=== PATIENT | male | born 1960 ===

== ENCOUNTER 2017-07-01 07:27 | Emergency (ER) | payer BC ==
[2017-07-01 07:27] VITALS: BMI 23.3
[2017-07-01 07:59] VITALS: RESP 17; TEMP 97.9
--- NOTE | 2017-07-01 08:57 | ED PDOC ---
Arrival/HPI - General Chief Complaint: Upper Extremity Problem/Injury Time Seen by Provider: 07/01/17 07:30 Historian: Patient - History of Present Illness Narrative History of Present Illness (Text): 07/01/17 09:00 56 year old male with a hx of Diabetes and hypertension, complaining of pain to the left side of chest/axillary area for the past 2-3weeks. Patient notes that coughing or moving arm around makes it worse, but not particularly coughing. Patient did not take his BP meds today. Denies nausea, vomiting, diarrhea, shortness of breath, leg swelling, diaphoresis, rash, or abdominal pain. Time/Duration: > week (2 weeks) Symptom Onset: Sudden Severity Level: Mild Past Medical History - Provider Review Nursing Documentation Reviewed: Yes - Infectious Disease Hx of Infectious Diseases: None - Cardiac Hx Hypertension: Yes - Endocrine/Metabolic Hx Diabetes Mellitus Type 2: Yes - Musculoskeletal/Rheumatological Hx Back Pain: Yes - Psychiatric Hx Substance Use: No - Anesthesia Hx Anesthesia: No Family/Social History - Physician Review Nursing Documentation Reviewed: Yes Family/Social History: Unknown Family HX Smoking Status: Light Smoker < 10 Cigarettes Daily Hx Alcohol Use: Yes Hx Substance Use: No Allergies/Home Meds Allergies/Adverse Reactions: Allergies No Known Allergies Allergy (Verified 07/10/16 12:05) Review of Systems - Physician Review All systems were reviewed & negative as marked: Yes - Review of Systems Respiratory: absent: SOB Gastrointestinal: absent: Abdominal Pain Physical Exam - Physical Exam Narrative Physical Exam (Text): Constitutional: No acute distress. Head: Normocephalic. Atraumatic. Eyes: PERRL. ENT: Moist mucous membranes. Neck: Supple. Cardiovascular: Regular rate. Radial pulse 2+ bilaterally. Chest: No tenderness. Respiratory: Clear to auscultation bilaterally. GI: Soft. Nontender. Nondistended. Back: No CVA tenderness. Musculoskeletal: No tenderness or swelling of extremities. Skin: No rash. Neurologic: Alert, no focal deficit. Vital Signs Temp Pulse Resp BP Pulse Ox 07/01/17 11:55 98 H 17 156/78 H 99 07/01/17 11:00 100 H 17 155/80 H 99 07/01/17 09:27 104 H 17 164/92 H 100 07/01/17 07:57 97.9 F 106 H 17 172/99 H 100 Medical Decision Making ED Course and Treatment: 07/01/17 08:58 Impression: 56 year old male c/o pain to the left side of chestaxillary area for the past 2-3 weeks. Plans: * EKG * Blood labs * Chest X-ray * Aspirin * Urinalysis FINDINGS: LINES AND TUBES: None. LUNG AND PLEURA: The lungs are well inflated and clear. HEART AND MEDIASTINUM: The heart is not enlarged. The hilar and mediastinal contours are within normal limits. SKELETAL STRUCTURES: The bony structures are within normal limits for the patient's age. VISUALIZED UPPER ABDOMEN: Normal. OTHER FINDINGS: None. IMPRESSION: No active pulmonary disease. Patient with no change in symptoms during evaluation. Vital signs stable, still with no shortness of breath and pulse oximetry at 100%. Enzymes negative in this patient with pain for 2-3 weeks. Discussed case with Dr. Quezada who agrees with work up and states patient can see him in office in 2 days on Wednesday. Discharged home, instructed to return to ED for any shortness of breath. - Lab Interpretations Lab Results: 07/01/17 08:50 07/01/17 08:50 Lab Results 07/01/17 10:37: Urine Color Yellow, Urine Appearance Clear, Urine pH 7.0, Ur Specific [place] 1.015, Urine Protein Negative, Urine Glucose (UA) 500 H, Urine Ketones Negative, Urine Blood Negative, Urine Nitrate Negative, Urine Bilirubin Negative, Urine Urobilinogen 0.2, Ur Leukocyte Esterase Negative 07/01/17 08:50: Sodium 139, Potassium 4.3, Chloride 103, Carbon Dioxide 31, Anion Gap 10, BUN 17, Creatinine 0.9, Est GFR ( Amer) > 60, Est GFR (Non- Af Amer) > 60, Random Glucose 237 H, Calcium 9.6, Total Bilirubin 0.7, AST 21, ALT 20, Alkaline Phosphatase 65, Total Creatine Kinase 190, Troponin I < 0.01, Total Protein 6.9, Albumin 4.0, Globulin 2.9, Albumin/Globulin Ratio 1.3 07/01/17 08:50: WBC 6.7 D, RBC 4.17, Hgb 12.3 L, Hct 36.9 L, MCV 88.5, MCH 29.5 , MCHC 33.3, RDW 13.0, Plt Count 257, MPV 10.2, Gran % 61.2, Lymph % (Auto) 28.8 , [place] % (Auto) 8.2 H, Eos % (Auto) 1.5, Baso % (Auto) 0.3, Gran # 4.09, Lymph # 1.9, [place] # 0.6, Eos # 0.1, Baso # 0.02 - RAD Interpretation Radiology Orders: 07/01/17 08:04 CHEST TWO VIEWS (PA/LAT) [RAD] Stat - EKG Interpretation EKG Interpretation (Text): 07/01/17 08:57 NSR 70, NO ST/T wave changes Interpreted by ED Physician: Yes Type: 12 lead EKG - Medication Orders Current Medication Orders: Discontinued Medications Aspirin (Aspirin) 325 mg PO STAT STA Stop: 07/01/17 08:05 Last Admin: 07/01/17 09:08 Dose: 325 mg Famotidine (Pepcid) 20 mg PO STAT STA Stop: 07/01/17 11:32 Last Admin: 07/01/17 12:00 Dose: 20 mg Ketorolac Tromethamine (Toradol) 60 mg IM STAT STA Stop: 07/01/17 11:16 Last Admin: 07/01/17 11:24 Dose: 60 mg MAR Pain Assessment Document 07/01/17 11:24 SF (Rec: 07/01/17 11:24 SF [id number]) Pain Reassessment Is this a pain reassessment? Yes Sleep Is patient sleeping during reassessment? No Presence of Pain Presence of Pain Yes Pain Scale Used Pain Scale Used Numeric Location Pain Location Body Site Chest Description Description Constant Pain Behavior Rubbing Site IM Administration Charges Document 07/01/17 11:24 SF (Rec: 07/01/17 11:24 SF [id number]) Injection Site MAR Injection Site Left Deltoid Charges for Administration # of IM Administrations 1 - Scribe Statement The provider has reviewed the documentation as recorded by the Scribe Lucius arteaga All medical record entries made by the Scribe were at my direction and personally dictated by me. I have reviewed the chart and agree that the record accurately reflects my personal performance of the history, physical exam, medical decision making, and the department course for this patient. I have also personally directed, reviewed, and agree with the discharge instructions and disposition. Disposition/Present on Arrival - Present on Arrival Any Indicators Present on Arrival: No History of DVT/PE: No History of Uncontrolled Diabetes: No Urinary Catheter: No History of Decub. Ulcer: No History Surgical Site Infection Following: None - Disposition Have Diagnosis and Disposition been Completed?: Yes Diagnosis: Left axillary pain Disposition: HOME/ ROUTINE Disposition Time: 11:33 Patient Plan: Discharge Condition: STABLE Discharge Instructions (ExitCare): Chest Pain (ED) Prescriptions: Famotidine [Pepcid] 1 tab PO BID #14 tab Ibuprofen [Motrin] 600 mg PO Q6 #25 tab Referrals: Neftali Quezada [Primary Care Provider] - Follow up with primary Forms: [facility] ([place] Citizen)
[2017-07-01 09:03] LABS: BASO # 0.02 K/mm3 (0.0-2.0); BASO % 0.3 % (0.0-3.0); EOS # 0.1 (0.0-0.7); EOS % 1.5 % (1.5-5.0); GRAN # 4.09 (1.4-6.5); GRAN % 61.2 % (50.0-68.0); HEMATOCRIT 36.9 % (42.0-52.0); LYMPH # 1.9 (1.2-3.4); LYMPH % 28.8 % (22.0-35.0); MEAN CELL VOLUME 88.5 fl (80.0-105.0); MEAN CORPUSCULAR HEMOGLOBIN 29.5 pg (25.0-35.0); MEAN CORPUSCULAR HGB CONC 33.3 g/dl (31.0-37.0); MEAN PLATELET VOLUME 10.2 fl (7.0-11.0); MONO # 0.6 (0.1-0.6); MONO % 8.2 % (1.0-6.0); WHITE BLOOD COUNT 6.7 10^3/ul (4.5-11.0)
[2017-07-01 09:14] LABS: ALB/GLOB RATIO 1.3 (1.1-1.8); ALKALINE PHOSPHATASE 65 U/L (38-126); ALT/SGPT 20 U/L (7-56); AST/SGOT 21 U/L (17-59); BILIRUBIN,TOTAL 0.7 mg/dL (0.2-1.3); BLOOD UREA NITROGEN 17 mg/dL (7-21); CALCIUM 9.6 mg/dL (8.4-10.5); CARBON DIOXIDE 31 mmol/L (21-33); CHLORIDE 103 mmol/L (98-107); GFR AFRICAN-AMERICAN > 60; GLUCOSE,RANDOM 237 mg/dL (70-110); POTASSIUM 4.3 mmol/L (3.6-5.0); SODIUM 139 mmol/L (132-148); TOTAL PROTEIN 6.9 g/dL (5.8-8.3)
[2017-07-01 09:26] LABS: TROPONIN I < 0.01 ng/mL
[2017-07-01 10:51] LABS: URINE BILIRUBIN NEGATIVE (NEGATIVE); URINE BLOOD NEGATIVE (NEGATIVE); URINE GLUCOSE (UA) 500 mg/dL (NEGATIVE); URINE KETONE NEGATIVE (NEGATIVE); URINE LEUKOCYTE ESTERASE NEGATIVE Leu/uL (NEGATIVE); URINE PROTEIN NEGATIVE mg/dL (<30 mg/dL); URINE UROBILINOGEN 0.2 E.U./dL (<1 E.U./dL)
--- NOTE | 2017-07-01 10:52 | RAD ---
HISTORY: COMPARISON: 09/22/2015 TECHNIQUE: Chest PA and lateral FINDINGS: LINES AND TUBES: None. LUNG AND PLEURA: The lungs are well inflated and clear. HEART AND MEDIASTINUM: The heart is not enlarged. The hilar and mediastinal contours are within normal limits. SKELETAL STRUCTURES: The bony structures are within normal limits for the patient's age. VISUALIZED UPPER ABDOMEN: Normal. OTHER FINDINGS: None. IMPRESSION: No active pulmonary disease.
[2017-07-01 10:53] LABS: URINE APPEARANCE CLEAR (CLEAR); URINE COLOR YELLOW (YELLOW)
[2017-07-01 11:55] VITALS: O2SAT 99
[2017-07-01 11:56] VITALS: BP 156/78; PULSE 98
--- NOTE | 2017-07-01 22:01 | CARD ---
APPROVED REPORT EKG Measurement Heart [id number] <Conclusion> Normal sinus rhythm Normal ECG
== END 2017-07-01 12:00 | disposition home or self-care (01) ==
LOC: ED 07:27
DX: M79.622 Pain in left upper arm (principal); I10 Essential (primary) hypertension; E11.9 Type 2 diabetes mellitus without complications; F17.210 Nicotine dependence, cigarettes, uncomplicated
CPT/HCPCS: 71020; 80053; 81003; 82550; 84484; 85025; 93005; 96372; 99285; J1885